=== PATIENT | female | born 1970 | race Caucasian/White ===

== ENCOUNTER → 2016-06-12 | Outpatient (CLI) | payer OTHER ==
[~2016-06-12] MED LIST: IBUP-1459 PO; LEVO112T2 PO; PROM12.57 PO; SYN150 PO; [UNRECOGNIZED DRUG - OTHER] PO
[2016-06-12 10:02] LABS: BLOOD UREA NITROGEN 13 mg/dl (7-18); BUN/CREATININE RATIO 18.9 (10-20); CALCIUM 8.5 mg/dl (8.5-10.1); CARBON DIOXIDE 30 mmol/L (21-32); CHLORIDE 105 mmol/L (98-107); GLUCOSE 88 mg/dl (70-99); POTASSIUM 3.7 mmol/L (3.5-5.1); SODIUM 140 mmol/L (136-145)
[2016-06-12 10:09] LABS: ESTIMATED AVERAGE GLUCOSE 100 mg/dl; HA1C FLAG Normal (Normal)
== END | disposition home or self-care (01) ==
LOC: C.LAB1850 08:22
PROVIDERS: ATTEND Family Medicine
DX: E03.9 Hypothyroidism, unspecified (principal); Z86.32 Personal history of gestational diabetes

== ENCOUNTER 2017-02-05 14:22 | Emergency (ER) | payer OTHER ==
[~2017-02-05] VITALS: Ht 160 cm; Wt 65.6 kg
[~2017-02-05 14:22] MED LIST changes: -IBUP-1459 PO; -LEVO112T2 PO; -PROM12.57 PO
[2017-02-05 14:29] VITALS: TEMP 36.5; Ht 160 cm; Wt 65.6 kg
[2017-02-05] MEDS ORDERED: PROCHLORPERAZINE 5 MG/ML 2 ML VIAL IV STA (15:19)
[2017-02-05] MEDS ORDERED: DiphenhydrAMINE HCL 50 MG/ML VIAL IV STA (15:19)
[2017-02-05] MEDS ORDERED: KETOROLAC TROMETHAMINE 30 MG/ML VIAL IV STA (15:24)
[2017-02-05] MEDS ORDERED: LEVO112T2 PO (15:56)
[2017-02-05] MEDS ORDERED: IBUP-1459 PO (15:56)
[2017-02-05 15:57] LABS: BASO % 0.1 %; BASO ABS # 0.01 K/uL (0-0.2); COMPLETE YES; EOS % 0.1 %; HEMATOCRIT 43.4 % (37-47); IG% 0.3 %; LYMPH % 8.9 %; LYMPH ABS # 0.61 K/uL (1.2-3.4); MEAN CORPUSCULAR HEMOGLOBIN 30.8 pg (25-34); MEAN CORPUSCULAR HGB CONC 33.9 g/dl (32-36); MEAN PLATELET VOLUME 10.4 fL (7.4-10.4); MONO % 2.2 %; NEUT % 88.4 %; PLATELET COUNT 249 K/uL (130-400); RED BLOOD COUNT 4.77 M/uL (4.2-5.4); WHITE BLOOD COUNT 6.83 K/uL (4.8-10.8)
[2017-02-05 16:22] VITALS: BP 129/84; PULSE 81; O2SAT 97
[2017-02-05 16:31] LABS: BUN/CREATININE RATIO 13.7 (10-20); CALCIUM 8.6 mg/dl (8.5-10.1); CREATININE 0.64 mg/dl (0.60-1.20); POTASSIUM 3.4 mmol/L (3.5-5.1)
[2017-02-05] MEDS ORDERED: PROM12.57 PO (16:48)
--- NOTE | 2017-02-05 19:06 | EMERGENCY ROOM VISIT NOTE ---
History Report prepared by Gustavoibmatt: Nica Aaron Under the Supervision of: Dr. Cruz Harris M.D. First contact with patient: 15:09 Chief Complaint: HEADACHE Stated Complaint: MIGRAINE,VOMITING,PAIN,DIARRHEA History of Present Illness The patient is a 46 year old female who presents to the Emergency Room with complaints of a persistent headache that started this morning. She describes the pain as feeling "throbbing" in nature and rates her pain as an 8/10 in severity. The pain is located in the bilateral front of her face. Light, sounds and smells worsen her discomfort. She denies hitting her head or any recent fevers. She has experienced some chills. She has also experienced vomiting and diarrhea since this morning. She states she had 2 normal BM's then 1 episode of diarrhea so far today. She denies any melena or hematochezia. She denies any recent travel or eating anything unusual. She denies any recent antibiotic use. No sick contacts. She has experienced no abdominal pain. The patient admits to a history of migraine headaches for the past several years, since she was a teenager. In October 2016, the headaches worsened and she believes they are related to her menstrual cycle. Source of History: patient Onset: this morning Position: head Symptom Intensity: 8/10 Quality: other ("throbbing") Timing: other (persistent) Modifying Factors (Worsening): other (exposure to light and smells) Associated Symptoms: + chills, + nausea, + vomiting, + diarrhea, No fevers, No abdominal pain, No melena, No hematochezia Review of Systems See HPI for pertinent positives & negatives. A total of 10 systems reviewed and were otherwise negative. Past Medical & Surgical Medical Problems: (1) Hypothyroidism (2) Migraine headache Social History Smoking Status: Former Smoker Alcohol Use: occasionally Drug Use: none Marital Status: Housing Status: lives with family Occupation Status: employed Current/Historical Medications Scheduled Levothyroxine Sodium (Synthroid), 112 MCG PO DAILY Scheduled PRN Ibuprofen (Motrin), 400 MG PO Q6H PRN for Pain Promethazine (Phenergan ), 1 TABS PO Q6 PRN for Nausea or Vomiting Allergies Coded Allergies: Codeine (Verified Adverse Reaction, Unknown, NAUSEA, 06/15/11) Physical Exam Vital Signs Date Time Temp Pulse Resp B/P (MAP) Pulse Ox O2 Delivery O2 Flow Rate FiO2 02/05/17 16:22 81 18 129/84 97 Room Air 02/05/17 14:29 36.5 93 15 145/88 98 Room Air Physical Exam Constitutional: Vital signs reviewed. Eyes: Pupils are equal round reactive to light. Conjunctiva are noninjected. ENT: Pharynx is clear without erythema or exudate. Mucous membranes are moist. Neck supple without meningeal signs. Respiratory: Clear to auscultation bilaterally. Breath sounds are equal bilaterally. Cardiovascular: Regular rate and rhythm. No rubs or gallops. GI: Soft, nondistended and nontender. Bowel sounds are present. Musculoskeletal: No peripheral edema. No lower extremity tenderness. Integumentary: No cyanosis. Neurological: The patient is awake and alert. Cranial nerves II-XII are intact. Motor is 5 out of 5 all extremities. Sensation is intact to light touch all extremities. Normal speech. No pronator drift. Psychiatric: Normal affect. Medical Decision & Procedures Laboratory Results 02/05/17 15:30 Red Blood Count 4.77, Mean Corpuscular Volume 91.0, Mean Corpuscular Hemoglobin 30.8, Mean Corpuscular Hemoglobin Concent 33.9, Mean Platelet Volume 10.4, Neutrophils (%) (Auto) 88.4, Lymphocytes (%) (Auto) 8.9, Monocytes (%) (Auto) 2.2, Eosinophils (%) (Auto) 0.1, Basophils (%) (Auto) 0.1, Neutrophils # (Auto) 6.03, Lymphocytes # (Auto) 0.61, Monocytes # (Auto) 0.15, Eosinophils # (Auto) 0.01, Basophils # (Auto) 0.01 02/05/17 15:30 Test 02/05/17 00:00 02/05/17 15:30 Urine Test NEG (NEG) White Blood Count 6.83 K/uL (4.8-10.8) Red Blood Count 4.77 M/uL (4.2-5.4) Hemoglobin 14.7 g/dL (12.0-16.0) Hematocrit 43.4 % (37-47) Mean Corpuscular Volume 91.0 fL (80-100) Mean Corpuscular Hemoglobin 30.8 pg (25-34) Mean Corpuscular Hemoglobin Concent 33.9 g/dl (32-36) Platelet Count 249 K/uL (130-400) Mean Platelet Volume 10.4 fL (7.4-10.4) Neutrophils (%) (Auto) 88.4 % Lymphocytes (%) (Auto) 8.9 % Monocytes (%) (Auto) 2.2 % Eosinophils (%) (Auto) 0.1 % Basophils (%) (Auto) 0.1 % Neutrophils # (Auto) 6.03 K/uL (1.4-6.5) Lymphocytes # (Auto) 0.61 K/uL (1.2-3.4) Monocytes # (Auto) 0.15 K/uL (0.11-0.59) Eosinophils # (Auto) 0.01 K/uL (0-0.5) Basophils # (Auto) 0.01 K/uL (0-0.2) RDW Standard Deviation 43.6 fL (36.4-46.3) RDW Coefficient of Variation 13.0 % (11.5-14.5) Immature Granulocyte % (Auto) 0.3 % Immature Granulocyte # (Auto) 0.02 K/uL (0.00-0.02) Anion Gap 7.0 mmol/L (3-11) Est Creatinine Clear Calc Drug Dose 100.0 ml/min Estimated GFR () 124.0 Estimated GFR (Non- 107.0 BUN/Creatinine Ratio 13.7 (10-20) Calcium Level 8.6 mg/dl (8.5-10.1) Laboratory results as reviewed by me. Medications Administered Medications (Trade) Dose Ordered Sig/Fabiola Route Start Time Stop Time Status Last Admin Dose Admin Prochlorperazine Edisylate (Compazine Inj) 10 mg NOW STAT IV 02/05/17 15:19 02/05/17 15:21 DC 02/05/17 15:47 10 MG Diphenhydramine HCl (Benadryl Inj) 50 mg NOW STAT IV 02/05/17 15:19 02/05/17 15:21 DC 02/05/17 15:47 50 MG Ketorolac Tromethamine (Toradol Inj) 10 mg NOW STAT IV 02/05/17 15:24 02/05/17 15:25 DC 02/05/17 15:47 10 MG ED Course 1511: The patient was evaluated in room C8. A complete history and physical exam was performed. 1519: Benadryl 50 mg IV, Compazine 10 mg IV. 1524: Toradol 10 mg IV. 1600: I reevaluated the patient. She is just getting her medications now. 1645: I reevaluated the patient. She is feeling much better. I discussed her test results and discharge instructions and she verbalized complete understanding and agreement. Medical Decision This is a 46-year-old female who presents with a headache and vomiting and diarrhea. Differential diagnosis includes migraine headache, tension headache, cluster headaches, foodborne illness, electrolyte abnormality, dehydration. I did perform a limited focused review of portions of the patient's old chart on the electronic medical record. The patient has had no recent pertinent visits to this hospital. I did evaluate the patient as noted above. Patient is presenting with a headache which she states is consistent with her prior headaches. She has had migraines since she was a teenager although they were never formally diagnosed. She has had increased headache since October of this year during her menses. I did discuss the possibility of CT scanning of her head due to the increased frequency but the patient declined. She will follow up with her doctor for further discussion of possible imaging as an outpatient. IV access was established. I did treat the patient with IV Benadryl and Compazine and Toradol. Due to a critical nationwide shortage of IV fluids the patient was given oral rehydration. I did order and review the patient's blood work as noted in the electronic medical record. Her white blood cell count is not elevated. Potassium is slightly low secondary to her vomiting and diarrhea. I did reassess the patient. She is feeling much better. Her headache is improved. She is drinking fluids. I did discuss the test results with her. She will follow up with her doctor and was discharged with a prescription for Phenergan. Medication Reconcilliation Current Medication List: was personally reviewed by me Blood Pressure Screening Patient's blood pressure: Elevated blood pressure Blood pressure disposition: Referred to PCP Impression Primary Impression: Acute headache Additional Impressions: Vomiting and diarrhea Hypokalemia Scribe Attestation The scribe's documentation has been prepared under my direct and personally reviewed by me in its entirety. I confirm that the note above accurately reflects all work, treatment, procedures, and medical decision making performed by me. Departure Information Dispostion Home / Self-Care Prescriptions Promethazine (Phenergan ) 12.5 Mg Tab 1 TABS PO Q6 Y for Nausea or Vomiting, #14 TAB Prov: Cruz Harris M.D. 02/05/17 Referrals Tomasa Gonzales DO (PCP) Patient Instructions Headache Pain, Hypokalemia Dc, [facility] Additional Instructions You have been examined and treated today on an emergency basis only. This is not a substitute for, or an effort to provide, complete comprehensive medical care. It is impossible to recognize and treat all injuries or illnesses in a single emergency department visit. It is therefore important that you follow up closely with your physician. Call as soon as possible for an appointment. Return for worsening symptoms or if you develop fever, numbness or weakness on one side of your body, difficulties with your speech or walking, or any other concerning symptoms. Problem Qualifiers Primary Impression: Acute headache Headache type: unspecified Intractability: not intractable Qualified Codes : R51 - Headache
== END 2017-02-05 16:55 | disposition home or self-care (01) ==
LOC: C.EDB 14:24 → C.EDC 16:55
DX: R51 Headache (principal); R11.10 Vomiting, unspecified; R19.7 Diarrhea, unspecified; E87.6 Hypokalemia; E03.9 Hypothyroidism, unspecified; Z87.891 Personal history of nicotine dependence; Z79.899 Other long term (current) drug therapy; Z88.5 Allergy status to narcotic agent

== ENCOUNTER → 2017-02-18 | Outpatient (CLI) | payer OTHER ==
[~2017-02-18] MED LIST changes: +IBUP-1459 PO; +LEVO112T2 PO; +PROM12.57 PO; -SYN150 PO; -[UNRECOGNIZED DRUG - OTHER] PO
[2017-02-18 12:29] LABS: BASO % 0.2 %; BASO ABS # 0.01 K/uL (0-0.2); COMPLETE YES; HEMATOCRIT 40.4 % (37-47); IG% 0.2 %; LYMPH ABS # 1.62 K/uL (1.2-3.4); MEAN CELL VOLUME 92.2 fL (80-100); MEAN CORPUSCULAR HEMOGLOBIN 30.4 pg (25-34); MEAN CORPUSCULAR HGB CONC 32.9 g/dl (32-36); MEAN PLATELET VOLUME 10.4 fL (7.4-10.4); MONO % 8.7 %; NEUT % 56.9 %; PLATELET COUNT 223 K/uL (130-400); RED BLOOD COUNT 4.38 M/uL (4.2-5.4); WHITE BLOOD COUNT 5.07 K/uL (4.8-10.8)
[2017-02-18 12:46] LABS: BLOOD UREA NITROGEN 13 mg/dl (7-18); BUN/CREATININE RATIO 18.2 (10-20); CALCIUM 8.5 mg/dl (8.5-10.1); CARBON DIOXIDE 27 mmol/L (21-32); CHLORIDE 106 mmol/L (98-107); CREATININE 0.71 mg/dl (0.60-1.20); GLUCOSE 92 mg/dl (70-99); POTASSIUM 4.2 mmol/L (3.5-5.1); SODIUM 136 mmol/L (136-145)
[2017-02-18 12:56] LABS: THYROID STIMULATING HORMONE 0.717 uIu/ml (0.300-4.500)
== END | disposition home or self-care (01) ==
LOC: C.LABPBG 10:27
PROVIDERS: ATTEND Family Medicine
DX: E03.9 Hypothyroidism, unspecified (principal); E06.3 Autoimmune thyroiditis; R53.83 Other fatigue; G43.909 Migraine, unspecified, not intractable, without status migrainosus

== ENCOUNTER → 2017-02-24 | Outpatient (CLI) | payer OTHER ==
--- NOTE | 2017-02-24 09:57 | DIAGNOSTIC IMAGING REPORT ---
SCALP ULTRASONOGRAPHY CLINICAL HISTORY: SCALP MASS COMPARISON STUDY: No previous studies for comparison. FINDINGS: No pathologic superficial soft tissue masses are visualized. 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 CT scanning might be considered for further evaluation as deemed clinically indicated. IMPRESSION: 1. 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 This cannot be further characterized ultrasonographically. CT scanning might be considered in follow-up for further evaluation as deemed clinically indicated. Electronically signed by: Cody Sweeney M.D. 02/24/2017 9:56 AM Dictated Date/Time: 02/24/2017 9:53 AM
== END | disposition home or self-care (01) ==
LOC: C.ULTR 09:30
PROVIDERS: ATTEND Physician Assistant
DX: R22.0 Localized swelling, mass and lump, head (principal)

== ENCOUNTER → 2017-03-17 | Outpatient (CLI) | payer OTHER ==
--- NOTE | 2017-03-17 14:11 | DIAGNOSTIC IMAGING REPORT ---
CT SCAN OF THE BRAIN WITHOUT IV CONTRAST CLINICAL HISTORY: Scalp mass. COMPARISON STUDY: No priors. TECHNIQUE: Unenhanced axial CT scan of the brain is performed from the vertex to the skull base. A dose lowering technique was utilized adhering to the principles of ALARA. CT DOSE: 537.48 mGy.cm FINDINGS: Brain parenchyma: The brain parenchyma is normal in appearance. There is no hemorrhage, mass effect, or evidence of acute territorial ischemia by CT criteria. Rodriguez-white matter is preserved. No extra-axial fluid collection is seen. Ventricles, sulci, cisterns: Normal in configuration. Intracranial vasculature: The visualized intracranial vasculature at the skull base is normal in appearance. 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 The calvarium is otherwise normal in appearance. Sinuses and mastoids: The visualized paranasal sinuses are clear. The mastoid air cells are well pneumatized. Orbits: The bony orbits are grossly intact. IMPRESSION: 1. No acute intracranial abnormality. 2. 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 This may correspond to the finding of palpable concern. Electronically signed by: Geovanny Bauer M.D. 03/17/2017 2:10 PM Dictated Date/Time: 03/17/2017 2:00 PM
== END | disposition home or self-care (01) ==
LOC: C.CTS 13:48
PROVIDERS: ATTEND Family Medicine
DX: R22.0 Localized swelling, mass and lump, head (principal)